=== PATIENT | female | born 1985 | race Two or more races ===

== ENCOUNTER 2020-06-14 05:16 | Inpatient (IN) | payer OTHER ==
[~2020-06-14] VITALS: Ht 165.1 cm; Wt 4.5 kg
[2020-06-14] MEDS ORDERED: PRENATAL CAPLE1 EAC1 PO (05:51)
[2020-06-14] MEDS ORDERED: ASPIR 8181 MG PO (05:51)
== END 2020-06-17 14:33 | disposition home or self-care (01) | DRG 788 ==
LOC: LDR 05:16 → O/R 05:16 → SURG-SUITE 15:42
PROVIDERS: ADMIT Obstetrics & Gynecology; ATTEND Obstetrics & Gynecology
PROC: 3E0P7VZ Introduction of Hormone into Female Reproductive, Via Natural or Artificial Opening (ICD-10-PCS; 2020-06-14)
PROC: 10907ZC Drainage of Amniotic Fluid, Therapeutic from Products of Conception, Via Natural or Artificial Opening (ICD-10-PCS; 2020-06-14)
PROC: 4A1HXCZ Monitoring of Products of Conception, Cardiac Rate, External Approach (ICD-10-PCS; 2020-06-14)
PROC: 10D00Z1 Extraction of Products of Conception, Low, Open Approach (ICD-10-PCS; principal; 2020-06-14 14:15)
DX: O64.8XX0 Obstructed labor due to other malposition and malpresentation, not applicable or unspecified (principal); Z20.828 Contact with and (suspected) exposure to other viral communicable diseases; Z3A.39 39 weeks gestation of pregnancy; Z37.0 Single live birth